=== PATIENT | female | born 1960 | race Caucasian/White ===

== ENCOUNTER → 2018-01-28 20:20 | Outpatient (CLI) | payer OTHER ==
[2014-12-14 12:34] VITALS: BMI 24.2
[~2018-01-28 20:20] MED LIST: ANASTROZOLE1 MG PO; FLOMAX0.4 MG PO; IBUPROFEN200 MG PO; PHENERGAN25 M1 PO; PRILOSEC20 MG PO; TOPROL XL25 MG PO; ULTRAM50 MG PO; XANAX0.25 MG PO; [UNRECOGNIZED DRUG - OTHER] PO
== END | disposition home or self-care (01) ==
LOC: D.MAMMO 15:00
DX: Z85.3 Personal history of malignant neoplasm of breast (principal)

== ENCOUNTER → 2019-03-10 10:00 | Outpatient (CLI) | payer OTHER ==
[2014-12-14 12:34] VITALS: BMI 24.2
== END | disposition home or self-care (01) ==
LOC: D.MAMMO 09:30
PROVIDERS: ATTEND Family Medicine
DX: Z85.3 Personal history of malignant neoplasm of breast (principal)